=== PATIENT | female | born 1965 | race Caucasian/White ===

== ENCOUNTER 2022-01-19 16:14 | Emergency (ER) | payer OTHER ==
--- OUTSIDE RECORDS SUMMARY | 2022-01-19 16:32 | XMS REPORT | Continuity of Care Document ---
:1965 Author Organization [facility] t Address [address] [place] [address] Care Team Providers Name Role Phone Pcp, Patient Does Not Have A Primary Care Physician +[id number] JOSIAH LESTER Attending Clinician Unavailable MD DAVID Attending Clinician Unavailable LAB03 Attending Clinician Unavailable Josiah Lester MD Attending Clinician Dara Way Attending Clinician DARA MARKS Attending Clinician Unavailable Payers Payer Name Policy Type Policy Number Effective Date Expiration Date [facility] 3 [id number] 2019 00:00:00 Problems Condition Condition Condition Status Onset Resolution Last Treating Co mments Source Name Details Category Date Date Treatment Clinician Date Psoriasifo Psoriasifo Disease Active Coleman desir rm rm 5-18 Seybold dermatitis dermatitis 00:00: 00 Nonspecifi Nonspecifi Disease Active 2019-05 Coleman desir c abnormal c abnormal 2-23 Se ybold results of results of 00:00: liver liver 00 function function study study Low HDL Low HDL Disease Active 2019-05 [place] (under 40) (under 40) 2-23 Se ybold 00:00: 00 Hypertrigl Hypertrigl Disease Active 2019-05 Coleman desir yceridemia yceridemia 2-23 Se ybold 00:00: 00 Prediabete Prediabete Disease Active K thang s s 3-17 Seybold 00:00: 00 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 right HTN HTN Disease Active [place] (hypertens (hypertens Se ybold ion) ion) Psoriasis Psoriasis Disease Active James sey Seybold Thrombocyt Thrombocyt Disease Active Overview : [place] osis osis Formattin Seybold g of this note might be different from the original. platelets typically run 500-600,0 00, no rx No known No known Disease Unive rs active active ity of problems problems [facility] [place] [facility] Allergies, Adverse Reactions, Alerts Allergy Allergy Status Severity Reaction(s) Onset Inactive Treating Comm ents Source Name Type Date Date Clinician Codeine Propensi Active Other - See Stomach U nivers Hcl ty to comments 01-16 pain ity of adverse 00:00: [place] reaction 00 Medical s Branch CODEINE DRUG Active Med Other-Cmnt Unive rs HCL INGREDI 01-16 ity of 00:00: [place] 00 Medical Branch Codeine Propensi Active Other 2008-05 ABDOMINAL Azul ey ty to 2-28 CRAMPING Seybold adverse 00:00: reaction 00 s to drug NO KNOWN Drug Active Univers ALLERGIE Class ity of S [facility] Social History Social Habit Start Date Stop Date Quantity Comments Source History SDOH [place] sarabia Alcohol Binge History SDOH [place] sarabia Alcohol Comment Exposure to Not sure University of SARS-CoV-2 [facility] (event) Branch Alcohol intake 2021-07-17 2021-07-17 Current drinker Jennifer y Seybold 00:00:00 00:00:00 of alcohol (finding) History SDOH 2020-03-29 2020-03-29 1 [place] sarabia Alcohol Std 00:00:00 00:00:00 Drinks Tobacco Comment 2020-03-29 2020-03-29 2-4 cigs/day [place] Canybcristina 00:00:00 00:00:00 Tobacco use and 2020-03-29 2020-03-29 Smokeless tobacco Ke lsey Seybold exposure 00:00:00 00:00:00 non-user History SDOH 2020-03-29 2020-03-29 3 [place] Seybo ld Alcohol Frequency 00:00:00 00:00:00 Sex [birth year] At [birth year] [employer] 00:00:00 00:00:00 Hospital Smoking Status Start Date Stop Date Source Tobacco smoking consumption unknown [facility] Occasional tobacco smoker 2020-03-29 00:00:00 Ke lsey Seybold Medications Ordered Filled Start Stop Current Ordering Indication Dosage Frequency Signature Comments Components Source Medication Medication Date Date Medication? Clinician (SIG) Name Name BUPROPION Yes [id number] Take 1 Ke lsey HCL SR 150 2-14 tablet Seybold MG OR TB12 00:00: orally 00 daily for 3 days, then 1 tablet orally twice daily BUPROPION Yes [id number] Take 1 Ke lsey HCL SR 150 2-14 tablet Seybold MG OR TB12 00:00: orally 00 daily for 3 days, then 1 tablet orally twice daily Dexlansopra Yes [id number] 30mg Take 1 [place] zole 1-13 capsule Seybold (Dexilant) 00:00: (30 mg 30 MG oral 00 total) by Delayed mouth Release daily Capsule Dexlansopra Yes [id number] 30mg Take 1 [place] zole 1-13 capsule Seybold (Dexilant) 00:00: (30 mg 30 MG oral 00 total) by Delayed mouth Release daily Capsule Losartan 2020-05 Yes [id number] TAKE 1 James sey Potassium 2-13 TABLET BY Seybo ld 50 MG oral 00:00: MOUTH Tablet 00 EVERY DAY Losartan 2020-05 Yes [id number] TAKE 1 James sey Potassium 2-13 TABLET BY Seybo ld 50 MG oral 00:00: MOUTH Tablet 00 EVERY DAY hydroCHLORO 2020-0 Yes [id number] TAKE 1 [place] thiazide 25 9-23 TABLET BY Sey bold MG oral 00:00: MOUTH Tablet 00 EVERY DAY hydroCHLORO 2020-0 Yes [id number] TAKE 1 [place] thiazide 25 9-23 TABLET BY Sey bold MG oral 00:00: MOUTH Tablet 00 EVERY DAY predniSONE 2020-0 2021- No [id number] 20mg Take 1 [place] 20 MG oral 9-10 09-16 tablet (20 Se ybold tablet 00:00: 04:59 mg total) 00 :00 by mouth daily for 5 days Fluconazole 2020- No [id number] 150mg Take 1 [place] 150 MG oral 9-10 -11 tablet Seybo ld Tablet 00:00: 04:59 (150 mg 00 :00 total) by mouth once for 1 dose naproxen Yes [id number] 500mg Take 1 U nivers (NAPROSYN) 9-09 tablet by ity of 500 mg 00:00: mouth 2 [place] tablet 00 (two) Medical times Branch daily with meals. cyclobenzap Yes [id number] 5mg Take 1 Univers rine 5 mg 9-09 tablet by ity o f tablet 00:00: mouth 3 [place] 00 (three) Medical times Branch daily. naproxen Yes [id number] 500mg Take 1 U nivers (NAPROSYN) 9-09 tablet by ity of 500 mg 00:00: mouth 2 [place] tablet 00 (two) Medical times Branch daily with meals. cyclobenzap Yes [id number] 5mg Take 1 Univers rine 5 mg 9-09 tablet by ity o f tablet 00:00: mouth 3 [place] 00 (three) Medical times Branch daily. Dexlansopra Yes [id number] 30mg Take 1 [place] zole 5-21 capsule Seybold (Dexilant) 00:00: (30 mg 30 MG oral 00 total) by Delayed mouth Release daily Capsule Clobetasol Yes [id number] Apply Ke lsey Propionate 5-18 twice Seybold 0.05 % 00:00: daily to apply 00 affected externally areas on Cream feet for two weeks and for flare ups only Clobetasol Yes [id number] Apply Ke lsey Propionate 5-18 twice Seybold 0.05 % 00:00: daily to apply 00 affected externally areas on Cream feet for two weeks and for flare ups only Clobetasol Yes [id number] Apply Ke lsey Propionate 5-18 twice Seybold 0.05 % 00:00: daily to apply 00 affected externally areas on Cream feet for two weeks and for flare ups only hydroCHLORO 2019-05 Yes [id number] 25mg Take 1 [place] thiazide 25 1-20 tablet (25 Se ybold MG oral Tab 00:00: mg total) 00 by mouth daily Losartan 2019-05 Yes [id number] 50mg Take 1 James sey Potassium 1-20 tablet (50 Seyb old 50 MG oral 00:00: mg total) Tab 00 by mouth daily Aspirin 81 Yes [id number] TABLET [place] MG OR TABS 3-03 DAILY Seybold 00:00: 00 Aspirin 81 Yes [id number] TABLET [place] MG OR TABS 3-03 DAILY Seybold 00:00: 00 Aspirin 81 Yes [id number] TABLET [place] MG OR TABS 3-03 DAILY Seybold 00:00: 00 Immunizations Ordered Immunization Filled Immunization Date Status Commen ts Source Name Name Tdap- (Boostrix, 2021-06-23 Completed [place] cabrera Adacel) 00:00:00 Tdap- (Boostrix, 2021-06-23 Completed [place] cabrera Adacel) 00:00:00 Shingles IM 2020-09-24 Completed [place] Andradeol d (Shingrix) 00:00:00 Shingles IM 2020-09-24 Completed [place] Canybol d (Shingrix) 00:00:00 Shingles IM 2020-09-24 Completed [place] Canybol d (Shingrix) 00:00:00 Covid-19 Vaccine 2020-08-03 Completed [place] cabrera Moderna (Spikevax), 00:00:00 Mrna-lnp, Garret Protein, Pf Covid-19 Vaccine 2020-08-03 Completed [place] cabrera (Moderna), Mrna-lnp, 00:00:00 Garret Protein, Pf, 100 Mcg/0.5ml,IM Covid-19 Vaccine 2020-08-03 Completed [place] cabrera Moderna (Spikevax), 00:00:00 Mrna-lnp, Garret Protein, Pf Covid-19 Vaccine 2020-07-06 Completed [place] cabrera Moderna (Spikevax), 00:00:00 Mrna-lnp, Garret Protein, Pf Covid-19 Vaccine 2020-07-06 Completed [place] cabrera (Moderna), Mrna-lnp, 00:00:00 Garret Protein, Pf, 100 Mcg/0.5ml,IM Covid-19 Vaccine 2020-07-06 Completed [place] cabrera Moderna (Spikevax), 00:00:00 Mrna-lnp, Garret Protein, Pf Pneumococcal Vaccine, 2020-03-29 Completed James matos Seybold Polysaccharide 00:00:00 Shingles IM 2020-03-29 Completed [place] Canybol d (Shingrix) 00:00:00 Pneumococcal Vaccine, 2020-03-29 Completed James cany Seybold Polysaccharide 00:00:00 Shingles IM 2020-03-29 Completed [place] Seybol d (Shingrix) 00:00:00 Pneumococcal Vaccine, 2020-03-29 Completed James matos Seybold Polysaccharide 00:00:00 Shingles IM 2020-03-29 Completed [place] Andradeol d (Shingrix) 00:00:00 FLUCELVAX QUAD PF 2019-03-[address] 00:[facility] Hospital Tdap- (Boostrix, 2011-08-05 Completed [place] cabrera Adacel) 00:00:00 Tdap- (Boostrix, 2011-08-05 Completed [place] cabrera Adacel) 00:00:00 Tdap- (Boostrix, 2011-08-05 Completed [place] cabrera Adacel) 00:00:00 Vital Signs Vital Name Observation Time Observation Value Comments Source Heart rate 2021-06-23 19:09:00 98 /min [place] cabrera Body temperature 2021-06-23 19:09:00 36.83 Christine Azul Urban Respiratory rate 2021-06-23 19:09:00 16 /min Azul Urban Body height 2021-06-23 19:09:00 167.6 cm [place] cabrera Body weight 2021-06-23 19:09:00 85.73 kg [place] cabrera BMI 2021-06-23 19:09:00 30.51 kg/m2 [place] cabrera Oxygen saturation in 2021-06-23 19:09:00 99 /min [place] Urban Arterial blood by Pulse oximetry Systolic blood 2021-06-23 19:09:00 124 mm[Hg] [place] Seybold pressure Diastolic blood 2021-06-23 19:09:00 70 mm[Hg] Kelse y Seybold pressure Systolic blood 2021-01-17 15:12:00 128 mm[Hg] [place] Seybold pressure Diastolic blood 2021-01-17 15:12:00 80 mm[Hg] Kelse y Seybold pressure Heart rate 2021-01-17 15:12:00 103 /min [place] Ramsay eybold Body temperature 2021-01-17 15:12:00 36.22 Christine Azul ey Seybold Respiratory rate 2021-01-17 15:12:00 16 /min Azul ey Seybold Body height 2021-01-17 15:12:00 167.6 cm [place] coxbono Body weight 2021-01-17 15:12:00 86.501 kg [place] coxbold BMI 2021-01-17 15:12:00 30.78 kg/m2 [place] cxobono Oxygen saturation in 2021-01-17 15:12:00 100 /min [place] Urban Arterial blood by Pulse oximetry Systolic blood 2021-01-17 02:01:00 157 mm[Hg] Univer sity of pressure [facility] Diastolic blood 2021-01-17 02:01:00 87 mm[Hg] Unive rsity of pressure [facility] Heart rate 2021-01-17 02:01:00 114 /min [facility] Body temperature 2021-01-17 02:01:00 37.33 Christine Univ ers[facility] Respiratory rate 2021-01-17 02:01:00 16 /min Univ [facility] Body height 2021-01-17 02:01:00 167.6 cm [facility] Body weight 2021-01-17 02:01:00 86.183 kg Universi ty [facility] BMI 2021-01-17 02:01:00 30.67 kg/m2 Universi ty [facility] [place] Oxygen saturation in 2021-01-17 02:01:00 99 /min University Arterial blood by [facility] Pulse oximetry Branch Procedures Procedure Date / Time Performed Performing Clinician [facility] e NOTICE OF PRIVACY 2021-01-17 01:42:51 Doctor Unassigned, No Univ ersity [facility] PRACTICES Name Medical Branch CONSENT/REFUSAL FOR 2021-01-17 01:42:30 Doctor Unassigned, No [facility] [place] [facility] AND Name Medical Branch TREATMENT Plan of Care Planned Activity Planned Date Details Comments Source Future Scheduled 2022-01-06 SHINGLES VACCINES (1 Met [facility] Test 23:48:01 of 2) [code = SHINGLES VACCINES (1 of 2)] Future Scheduled 2022-01-06 INFLUENZA VACCINE Method [facility] Test 23:48:01 [code = INFLUENZA VACCINE] Future Scheduled 2022-01-06 HEPATITIS B VACCINES Met [facility] Test 23:48:01 (1 of 3 - 3-dose series) [code = HEPATITIS B VACCINES (1 of 3 - 3-dose series)] Future Scheduled 2022-01-06 COVID-19 VACCINE (#1) [facility] Test 23:48:01 [code = COVID-19 VACCINE (#1)] Future Scheduled 2022-01-06 Screening for [facility] Test 23:48:01 malignant neoplasm of cervix (procedure) [code = [id number]] Future Scheduled 2022-01-06 BREAST CANCER [facility] Test 23:48:01 SCREENING [code = BREAST CANCER SCREENING] Future Scheduled 2022-01-06 COLONOSCOPY SCREENING [facility] Test 23:48:01 [code = COLONOSCOPY SCREENING] Encounters Start End Encounter Admission Attending Care Care Encounter Source Date/Time Date/Time Type Type Clinicians Facility Department ID 2021-09-03 2021-09-03 Outpatient JOSIAH LESTER [id number] [place] 00:00:00 00:00:00 Seybol d 2021-09-02 2021-09-02 Outpatient SULMA CHAPPELL [id number] [place] 11:45:00 11:45:00 Seybol d 2021-09-02 2021-09-02 Outpatient S[place]MA CHAPPELL [id number] [place] 10:45:00 10:45:00 Seybol d 2021-09-02 2021-09-02 Outpatient S[place]MA CHAPPELL [id number] [place] 10:15:00 10:15:00 Seybol d 2021-09-02 2021-09-02 Outpatient S[place]MA CHAPPELL [id number] [place] 09:15:00 09:15:00 Seybol d 2021-09-02 2021-09-02 Outpatient JOSIAH LESTER [id number] [place] 00:00:00 00:00:00 Seybol d 2021-07-29 2021-07-29 Outpatient S[place]MA CHAPPELL [id number] [place] 11:45:00 11:45:00 Seybol d 2021-07-29 2021-07-29 Outpatient S[place]MA CHAPPELL [id number] [place] 10:45:00 10:45:00 Seybol d 2021-07-29 2021-07-29 Outpatient S[place]MA CHAPPELL [id number] [place] 10:15:00 10:15:00 Seybol d 2021-07-29 2021-07-29 Outpatient SULMA CHAPPELL [id number] [place] 09:15:00 09:15:00 Seybol d 2021-07-29 2021-07-29 Outpatient JUANISON [place] CHAPPELL [id number] [place] 00:00:00 00:00:00 MD ROSALBA Seybol d 2021-07-17 2021-07-17 Telemedici JOSIAH LESTER [id number] [place] 13:00:00 13:00:00 ne AT THE [id number] Se ybold SHOPS AT [id number] CENTER 4 0 2021-06-27 2021-06-27 Outpatient LAB S[place]MA CHAPPELL [id number] [place] 09:05:00 09:05:00 Seybol d 2021-06-23 2021-06-23 Office PRITI LESTERA [id number] 1 [id number] [place] 13:15:00 13:15:00 Visit AT THE [id number] Se ybold SHOPS AT [id number] CENTER 4 0 2021-05-22 2021-05-22 Outpatient JOSIAH LESTER [id number] [place] 00:00:00 00:00:00 Seybol d 2021-04-21 2021-04-21 Outpatient PRITI LESTERSue CHAPPELL [id number] [place] 00:00:00 00:00:00 Seybol d 2021-01-20 2021-01-20 Outpatient PRITI LESTERSue CHAPPELL [id number] [place] 00:00:00 00:00:00 Seybol d 2021-01-17 2021-01-17 Outpatient LAB03 SULMA CHAPPELL [id number] [place] 10:50:00 10:50:00 Seybol d 2021-01-17 2021-01-17 Office Josiah Lester [facility] [id number] [place] 10:06:25 10:21:25 Visit M AT THE [id number] [place] SHOPS AT [id number] [place] [id number] [facility] [place] 4 0 2021-01-16 2021-01-16 Emergency HECTOR Marks [id number] Univers 21:03:00 22:25:00 Dara Ramsay [place] [id number] i [facility] [id number] [facility] [id number] [facility] 084 Branch 2021-01-16 2021-01-16 Emergency X HECTOR MARKS ERT [id number] Univers 20:43:00 20:43:00 DARA castillo [facility] Results This patient has no known results.
--- NOTE | 2022-01-19 18:06 | RAD REPORT ---
EXAM DESCRIPTION: RAD - Foot Right 3 View - 01/19/2022 5:57 pm CLINICAL HISTORY: Right foot pain FINDINGS: No fracture or dislocation is seen A large spur extends off of the posterior calcaneus
[2022-01-19] MEDS ORDERED: ACETAMINOPHEN 500 MG TAB ONE (19:01)
[2022-01-19] MEDS ORDERED: IBUPROFEN 400 MG TAB ONE (19:02)
--- NOTE | 2022-01-19 19:30 | EDPHYS ---
Physician Documentation [facility] Name: Misa Deras Age: 56 yrs Sex: Female : 1965 Arrival Date: 01/19/2022 Time: 16:16 Bed 11 Private MD: MATEUSZ Physician Marquise Jenkins HPI: 01/19 16:42 This 56 yrs old Female presents to ER via Wheelchair with complaints of Foot Pain. cp 16:42 The patient presents with pain, that is acute. The complaints affect the lateral aspect cp of right foot. Context: resulted from an unknown cause, the patient is not able to bear weight. Onset: The symptoms/episode began/occurred 2 day(s) ago. Modifying factors: the symptoms are aggravated by weight bearing, palpation of lateral proximal foot. Associated signs and symptoms: Pertinent negatives fever. Historical: - Allergies: 16:39 Codeine; aa5 - Home Meds: 16:39 aspirin 81 mg Oral cap 1 cap once daily [Active]; dexlansoprazole 30 mg oral CpDB once aa5 daily [Active]; hydrochlorothiazide 25 mg Oral tab once daily [Active]; losartan 50 mg oral tab 1 tab once daily [Active]; - PMHx: 16:39 Hypertensive disorder; aa5 16:40 psoriasis; aa5 - Immunization history:: Adult Immunizations unknown. - Social history:: Smoking status: Patient reports the use of cigarette tobacco products, 2-3 cigarettes a day . ROS: 16:45 MS/extremity: Positive for pain, swelling, tenderness, of the lateral aspect of right cp foot, Negative for injury or acute deformity, decreased range of motion. 16:45 Constitutional: Negative for body aches, chills, fever. cp 16:45 Cardiovascular: Negative for chest pain, edema, palpitations. 16:45 Respiratory: Negative for cough, shortness of breath, wheezing. 16:45 Abdomen/GI: Negative for abdominal pain, nausea, vomiting, and diarrhea. 16:45 Neuro: Negative for altered mental status, headache, weakness. 16:45 All other systems are negative. Exam: 16:50 Constitutional: The patient appears in no acute distress, alert, awake, non-toxic, well cp developed, well nourished. 16:50 Head/Face: Normocephalic, atraumatic. cp 16:50 Chest/axilla: Inspection: normal. 16:50 Cardiovascular: Rate: normal. 16:50 Respiratory: the patient does not display signs of respiratory distress, Respirations: normal, no use of accessory muscles. 16:50 Back: pain, is absent, ROM is normal. 16:50 Musculoskeletal/extremity: Extremities: grossly normal except: noted in the lateral aspect of right foot: pain, tenderness to palpation and mild swelling noted below lateral malleolus, proximal lateral foot, There is no evidence of decreased ROM, deformity, Perfusion: the extremity is normally perfused throughout, Sensation intact. 16:50 Skin: cellulitis, is not appreciated, no rash present. Vital Signs: 16:40 BP 126 / 85; Pulse 108; Resp 16 S; Temp 98.4(TE); Pulse Ox 100% on R/A; Weight 81.65 kg aa5 (R); Height 5 ft. 6 in. (167.64 cm) (R); 19:43 BP 128 / 74; Pulse 74; Resp 16; Pulse Ox 99% on R/A; Pain 2/10; bm7 16:40 Body Mass Index 29.05 (81.65 kg, 167.64 cm) aa5 MDM: 18:47 Patient medically screened. [facility] 19:29 Data reviewed: vital signs, nurses notes, radiologic studies, plain films. cp 19:29 Differential diagnosis: dislocation, closed fracture, contusion. Test interpretation: cp by ED physician or midlevel provider: plain radiologic studies. Counseling: I had a detailed discussion with the patient and/or guardian regarding: the historical points, exam findings, and any diagnostic results supporting the discharge/admit diagnosis, radiology results, to return to the emergency department if symptoms worsen or persist or if there are any questions or concerns that arise at home. Response to treatment: the patient's symptoms have mildly improved after treatment, and as a result, I will discharge patient. 01/19 16:41 Order name: XRAY Foot RIGHT 3 View; Complete Time: 19:09 cp 01/19 19:29 Order name: Crutches; Complete Time: 19:30 cp Administered Medications: 18:57 Drug: Tylenol 1000 mg Route: PO; em6 19:27 Follow up: Response: No adverse reaction bm7 18:57 Drug: Ibuprofen 800 mg Route: PO; em6 19:27 Follow up: Response: No adverse reaction bm7 Disposition Summary: 01/19/22 19:29 Discharge Ordered Location: Home cp Problem: new cp Symptoms: have improved cp Condition: Stable cp Diagnosis - Pain in right foot cp Followup: cp - With: Shane Modi DPM - When: 5 - 6 days - Reason: Recheck today's complaints Discharge Instructions: - Discharge Summary Sheet cp - Foot Pain cp Forms: - Medication Reconciliation Form cp - Thank You Letter cp - Antibiotic Education cp - Prescription Opioid Use cp Prescriptions: - Diclofenac Sodium 75 mg Oral Tablet Sustained Release - take 1 tablet by ORAL route 2 times per day; 30 tablet; Refills: 0, Product cp Selection Permitted Signatures: Dispatcher [employer] EDMarquise Alcantar MD MD cha Calderon, Audri, RN RN aa5 Marquise Castellanos PA PA cp Martinez, Erika, TJ RN em6 Zhanna Donaldson RN bm7
--- NOTE | 2022-01-19 19:30 | ER ---
Nurse's Notes [facility] Name: Misa Deras Age: 56 yrs Sex: Female : 1965 Arrival Date: 01/19/2022 Time: 16:16 Bed 11 Private MD: Diagnosis: Pain in right foot Presentation: 01/19 16:38 Chief complaint: Patient states: right ankle pain, denies any injury, reports being aa5 unable to bear weight today. Coronavirus screen: At this time, the client does not indicate any symptoms associated with coronavirus-19. Ebola Screen: No symptoms or risks identified at this time. Initial Sepsis Screen: Does the patient meet any 2 criteria? No. Patient's initial sepsis screen is negative. Does the patient have a suspected source of infection? No. Patient's initial sepsis screen is negative. Risk Assessment: Do you want to hurt yourself or someone else? Patient reports no desire to harm self or others. Onset of symptoms was 2021. 16:38 Method Of Arrival: Wheelchair aa5 16:38 Acuity: DERIK 4 aa5 Historical: - Allergies: 16:39 Codeine; aa5 - Home Meds: 16:39 aspirin 81 mg Oral cap 1 cap once daily [Active]; dexlansoprazole 30 mg oral CpDB once aa5 daily [Active]; hydrochlorothiazide 25 mg Oral tab once daily [Active]; losartan 50 mg oral tab 1 tab once daily [Active]; - PMHx: 16:39 Hypertensive disorder; aa5 16:40 psoriasis; aa5 - Immunization history:: Adult Immunizations unknown. - Social history:: Smoking status: Patient reports the use of cigarette tobacco products, 2-3 cigarettes a day . Screenin:27 Abuse screen: Denies threats or abuse. Nutritional screening: No deficits noted. bm7 Tuberculosis screening: No symptoms or risk factors identified. Fall Risk None identified. Assessment: 19:27 Reassessment: No changes from previously documented assessment. Patient and/or family bm7 updated on plan of care and expected duration. Pain level reassessed. Patient is alert, oriented x 3, equal unlabored respirations, skin warm/dry/pink. 19:43 Pain: Complains of pain in lateral aspect of right foot. bm7 Vital Signs: 16:40 BP 126 / 85; Pulse 108; Resp 16 S; Temp 98.4(TE); Pulse Ox 100% on R/A; Weight 81.65 kg aa5 (R); Height 5 ft. 6 in. (167.64 cm) (R); 19:43 BP 128 / 74; Pulse 74; Resp 16; Pulse Ox 99% on R/A; Pain 2/10; bm7 16:40 Body Mass Index 29.05 (81.65 kg, 167.64 cm) aa5 ED Course: 16:16 Patient arrived in ED. am2 16:22 Marquise Castellanos PA is PHCP. cp 16:22 Marquise Jenkins MD is Attending Physician. cp 16:38 Triage completed. aa5 16:38 Arm band placed on. aa5 17:59 XRAY Foot RIGHT 3 View In Process Unspecified. EDMS 19:26 Zhanna Donaldson, RN is Primary Nurse. bm7 19:27 Patient has correct armband on for positive identification. Call light in reach. bm7 19:27 No provider procedures requiring assistance completed. Patient did not have IV access bm7 during this emergency room visit. 19:29 Shane Modi DPM is Referral Physician. cp Administered Medications: 18:57 Drug: Tylenol 1000 mg Route: PO; em6 19:27 Follow up: Response: No adverse reaction bm7 18:57 Drug: Ibuprofen 800 mg Route: PO; em6 19:27 Follow up: Response: No adverse reaction bm7 Medication: 19:27 VIS not applicable for this client. bm7 Outcome: 19:29 Discharge ordered by MD. cp 19:43 Discharged to home ambulatory, with crutches. bm7 19:43 Condition: good 19:43 Discharge instructions given to patient, Instructed on discharge instructions, follow up and referral plans. medication usage, crutch walking, Demonstrated understanding of instructions, follow-up care, medications, crutch walking, Prescriptions given X 1. 19:44 Patient left the ED. bm7 Signatures: Dispatcher [employer] EDMS Catalina Gan, RN RN aa5 Marquise Castellanos PA PA cp Cindy Rasheed am2 Zhanna Donaldson RN RN bm7 Darling Mclaughlin RN RN em6 Corrections: (The following items were deleted from the chart) 16:41 16:40 BP 126 / 85; Pulse 108bpm; Resp 16bpm; Spontaneous; Pulse Ox 100% RA; Temp 98.4F aa5 Temporal; aa5
[2022-01-19 21:09] VITALS: TEMP 98.4
[2022-01-19 21:12] VITALS: BP 128/74; O2SAT 99
== END 2022-01-19 19:44 | disposition home or self-care (01) ==
LOC: ER 16:14
DX: M79.671 Pain in right foot (principal); I10 Essential (primary) hypertension; F17.210 Nicotine dependence, cigarettes, uncomplicated; Z88.5 Allergy status to narcotic agent; Z79.82 Long term (current) use of aspirin
CPT/HCPCS: 99284